=== PATIENT | female | born 1990 | race Two or more races ===

== ENCOUNTER 2025-06-17 10:26 | Outpatient (AMB) | payer OTHER, SELFPAY ==
--- OUTSIDE RECORDS SUMMARY | 2025-06-15 10:40 | XMS_ITS | Encounter Summary ---
Author Organization [facility] Address [address] [place] [address] Care Team Providers Care Cat Scanner Operator Name Role Phone Sukhwinder Sanchez MD Primary Care Pr ovider Reason for Referral * Imaging (Routine) - Pending Review Specialty Diagnoses / Procedures Referred By Contac t Referred To Contact Radiology Diagnoses Epigastric pain Procedures US Abdomen Complete Pedro Conti MD [address] [facility] [address] [place] [address] Phone: tel: fax: [facility] Referral ID Status Reason Start Date Expiration Date V isits Requested Visits Authorized [id number] Pending Review 06/15/2025 06/15/2026 1 1 Reason for Visit * Reason Comments Abdominal Pain Constipation * Consultation (Routine) - Authorized Specialty Diagnoses / Procedures Referred By Contac t Referred To Contact Gastroenterology Diagnoses Epigastric pain Franky Wheatley PA [address] [place] [address] Phone: tel: fax: Gastroenterology - [place] [address] [facility] [address] [facility] [address] [place] [address] Phone: tel: fax: Referral ID Status Reason Start Date Expiration Date Visits Requested Visits Authorized [id number] Authorized Specialty Services Required 12/09/2024 12/09/2025 1 1 Encounter Details Date Type Department Care Team (Late st Contact Info) Description 06/15/2025 10:40 AM EST Office Visit Gastroenterology - [address] [place] [address] [facility] [address] [place] [address] Pedro Conti MD [address] [facility] [address] [place] [address] Menorrhagia with regular cycle (Primary Dx); Iron deficiency anemia due to chronic blood loss; Epigastric pain; Family history of gallstones; Constipation, unspecified constipation type Social History Tobacco Use Types Packs/Day Years Used Date Smoking Tobacco: Never Smokeless Tobacco: Never Alcohol Use Standard Drinks/Week Comments Yes 0 (1 standard drink = 0.6 oz pur e alcohol) Socially Interpersonal Safety Answer Date Record ed Physical Abuse Unrecognized value 03/23/2025 Verbal Abuse Unrecognized value 03/23/2025 Comments No Sex and Gender Information Value Date Recorded Sex Assigned at Female 03/15/2025 3:14 PM EDT Legal Sex Female 1:00 AM EST Gender Identity Not on file Sexual Orientation Not on file documented as of this encounter Last Filed Vital Signs Vital Sign Reading Time Taken Comments Blood Pressure 106/72 06/15/2025 10:53 AM EST Pulse 76 06/15/2025 10:53 AM EST Temperature - - Respiratory Rate - - Oxygen Saturation - - Inhaled Oxygen Concentration - - Weight 81.2 kg (179 lb) 06/15/2025 10:53 AM EST Height 165.1 cm (5' 5 ) 06/15/2025 10:53 AM EST Body Mass Index 29.79 06/15/2025 10:53 AM EST documented in this encounter Progress Notes * Pedro Conti MD - 06/15/2025 10:40 AM EST Increase fiber; add Miralax; move up abd u/s * Pedro Conti MD - 06/15/2025 10:40 AM EST 34 y/o female with one year of intermittent epigastric pain and constipation. Has had severe FDA due to menorrhagia with large fibroid which was resected recently. Now on iron and Hb up to 9gm% (was 7.2 gm%). Pain occurs about 3 times a month can last all day; not associated with known triggers or diet; no heartburn nausea vomiting weight loss or dysphagia; has stools every 3 days scyballous; claims good water intake but low fiber and trying to lose weight. FH positive for gallstones.Pain not related to fatty foods and does not radiate to back; has been scheduled for u/s but not for several months. Rare EtOH; non-smoker; has taken ibuprofen in past but not recently PMH: revieweed ROS: no SSCP MULLER Edema PE: WN/WD female NAD HEENT neg Cor and Lungs; clear Abd: soft mild epigastric tenderness no mass Extr: neg Imp & Plan: Functional constipation. Need to increase fiber intake and eat breakfast; can try Miralax or other fiber supplement. Oral iron may be aggravating constipation; Will try to move up abd u/s. If positive for gallstones will refer to general surgery; if negative can consider egd to r/o PUD etc but not related to diet documented in this encounter Plan of Treatment Upcoming Encounters Date Type Department Care Team ([facility] st Contact Info) Description 07/27/2025 11:00 AM EST Office Visit Gastroenterology - [address] [phone] Pedro Conti MD [address] [place] [id number] Scheduled Orders Name Type Priority Associated Diagnoses Orde r Schedule US Abdomen Complete Imaging Routine Epigastric pain Expected: 06/15/2025, Expires: 07/15/2025 documented as of this encounter Visit Diagnoses Diagnosis Menorrhagia with regular cycle- Primary Iron deficiency anemia due to chronic blood loss Iron deficiency anemia secondary to blood loss (chronic) Epigastric pain Abdominal pain, epigastric Family history of gallstones Family history of other digestive disorders Constipation, unspecified constipation type documented in this encounter Orders Outpatient Referral Count Last Ordered Date Fir st Ordered Date AMB REFERRAL TO GASTROENTEROLOGY 1 06/15/20 25 documented in this encounter Care Teams Cat Scanner Operator Relationship Specialty Start Date End Date Sukhwinder Sanchez MD [address] [place] [phone] PCP - General 02/03/23 documented as of this encounter
--- NOTE | 2025-06-17 10:15 | A.OFFVIS_ITS ---
Vital Signs 06/17/25 10:19 Height 5 ft 5 in Weight 180 lb BMI 30.0 BP 130/86 Blood Pressure Location Rt brachial Position Sitting Respiration 16 Pulse 78 Pulse Source Pulse Oximeter Pulse Oximetry (%) 100 Oxygen Delivery Method Room Air Intake Visit Reasons: Cerebrovascular accident Merchandising Specialist Required: No Allergies sean flavor Allergy (Unknown, Verified 06/17/25 10:20) Unknown morphine Allergy (Unknown, Verified 06/17/25 10:20) Unknown ondansetron (From Zofran) Allergy (Unknown, Verified 06/17/25 10:20) Unknown HPI Comments Details: Ruthy is a 34-year-old female patient medical history headaches, sleep difficulties, and CVA in 2019. According to records from primary care, she had a cerebellar stroke and possible RCVS in 2020 while . Her MRI at the time was positive for small cerebellar strokes. 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 Etiology was unclear and she was recommended a hypercoagulability workup. She saw [facility] neurology after her event though she can not recall the treatment recommendations at that time. I do not have access to these notes today. I also do not have any access to her hypercoagulable workup though she does recall it being negative. She tells me that she is currently experiencing a proximally 4 headache days per month. Her headaches are associated blurry vision and tend to be sudden onset. Headaches can last 10-30 minutes and are [id number] in pain intensity though both eyes become very blurry and this causes some anxiety. Her pain is typically bitemporal. She does not have light or sound sensitivity or nausea. She does not have any dizziness. Between her headaches she does not have any changes to her vision. There was no positional components to her headaches and they can arise at any point during the day. These types of headaches have been going intermittently since her CVA in August of 2019. She also notes some occasional tenderness to the crown of her head in the center but this is not directly associated with the headaches as she describes above. Other related background information: Sleep: Reports that sleep is poor. She has difficulty initiating and maintaining sleep. 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 Hydration: Drinks 2 16oz burnett per day Caffeine intake:Occasional /rare but not daily Alcohol intake:Rarely/social Substance use:None Tobacco use:None Last eye exam: >1 year ago Last dental visit:Within the last year Family planning considerations:No, has an IUD in place Past medication trials: Propranolol-no improvement Recalls being on a medication that made her headaches worse but can not remember the name Prior workup: August 2019 CTA of the head showed superior cerebellar artery cutoff June 2020 CT angio head and neck: No evidence of vascular occlusion, critical stenosis, dissection or aneurysm. [facility] Medical History (Updated 06/17/25 @ 11:07 by Tiffanie Pearson CNP) Vitamin D deficiency Sickle cell trait Migraine Anemia Cerebrovascular accident (CVA) Surgical History (Updated 05/26/25 @ 09:05 by Vickie Urena CMA) History of elective History of colposcopy Review of Systems Const All systems reviewed & are unremarkable except as noted in HPI and below Physical Exam Vital Signs: Last Vital Signs Pulse 78 06/17/25 10:19 Resp 16 06/17/25 10:19 BP 130/86 06/17/25 10:19 Pulse Ox 100 06/17/25 10:19 Oxygen Delivery Method Room Air 06/17/25 10:19 BMI result Body Mass Index 30.0 Const General: cooperative, healthy appearing, comfortable and no acute distress Nutritional Appearance: well nourished Orientation/consciousness: patient oriented x3 Limitations: no limitations HEENT Head: Yes normal to inspection and Yes normocephalic Eyes General: appearance normal, both eyes and all related structures Visual Cam: normal visual cam by confrontation Alignment and Position: alignment normal Periorbital: periorbital findings normal Eyelids: Yes eyelids normal Conjunctivae: conjunctivae normal Sclerae: sclerae normal Direct Ophthalmoscopy: normal light reflex Neck Neck: Yes normal visual inspection and Yes full ROM General: Yes no CVA tenderness Back/Spine/Pelvis Back: no CVA tenderness Cervical Spine: normal cervical lordosis Thoracic/Lumbar Spine: thoracic and lumbar spine normal to inspection Neuro General: patient oriented x3, tone normal and deep tendon reflexes 2+ bilaterally Cranial nerves: Yes CN's II-XII intact bilaterally and Yes Facial sensation int act/muscles of mastication intact Cognition (Neuro): normal cognition Gait exam (Neuro): Normal gait present Motor exam (neuro): 5/5 motor strength present throughout and no tremor noted Sensory Exam: double simultaneous stimulation for sensation normal Romberg Test: Negative Pupils: Normal pupillary reactivity/response: bilateral Psych Appearance: grossly normal Mental Status: mental status grossly normal Speech and movement: Normal speech and movement present and Clear speech present Affect: normal affect Attitude: cooperative Thought process: Normal thought process present Thought content: Normal thought content present Insight: Good insight present (Psych) Judgement: Good judgement present (Psych) Assessment & Plan Assessment & Plan (1) Temporal headache: Code(s): R51.9 - Headache, unspecified Category: Medical (2) Blurred vision: Code(s): H53.8 - Other visual disturbances Category: Medical Plan Ruthy is a 34-year-old female patient medical history headaches, sleep difficulties, and CVA in 2019. Based on available records today, it appears that stroke is cryptogenic not likely related to hypercoagulable state (though I do not have lab results for review). She was seen at [facility] neurology after her stroke event. I will attempt to get these records. She does continue to have headaches 4 times per month associated with a sudden onset and blurry vision. These have been happening since her CVA in 2027 without any change to the quality or patterns. Exam today was normal. Headache etiology seems somewhat unclear but suspicious for vascular involvement. I will start verapamil 120 mg nightly and we can consider further imaging if needed pending the notes from [facility] neurology. Sleep remains poor, could consider in the future doing a sleep study treating with melatonin. Verapamil however does have somewhat of a sleep inducing effect which may be beneficial in that regard as well. Headaches at present are too brief to consider acute therapy. -Verapamil 120mg nightly -Consider addition of melatonin if additional sleep agent is needed -Consider repeat imaging if indicated based on prior notes -Follow up in 2 months or sooner if needed Medications: New verapamil ER 120 mg PO BEDTIME 30 caps 5RF 30 days Coding Level of Care Code New Pt Level 4 (67297) Diagnoses Temporal headache R51.9 Blurred vision H53.8
[2025-06-17 10:19] VITALS: BP 130/86; PULSE 78; RESP 16; O2SAT 100
--- OUTSIDE RECORDS SUMMARY | 2025-06-17 11:08 | XMS_ITS ---
Author Name [facility] Organization Unknown Care Team Organization Name Specialty Phone Email Start Date End Da te [facility] Annette Melchor APRN Primary Care 12/02/2022 03/15/2024 [facility] Sharifa Aguirre Primary Care 06/04/2022
--- OUTSIDE RECORDS SUMMARY | 2025-06-17 11:08 | XMS_ITS | Patient Health Record ---
Author Organization [facility] Address [address] [place] [address] Care Team Providers Care Stack Yield Engineer Name Role Phone IVONNE RAJAN Unavailable [phone] Reason For Referral No Information Immunizations Vaccine Route Administration Date Status Comme nts TB SKIN TEST ID Intradermal 06/30/2023 Administered Plan Of Treatment No Information Insurance Providers Payer Name Payer Address Payer Phone Subscriber Number Group Number Insured Name Patient Relationship to Insured Coverage Start Date Coverage End Date [facility] [address] [place] [address] SHITAL AZAR Self - patient is the insured 2 SELF/NN [address] [place] [address] [phone] SHITAL AZAR Self - patient is the insured 3
--- OUTSIDE RECORDS SUMMARY | 2025-06-17 11:09 | XMS_ITS | Clinical Summary ---
Author Organization [place] [address] [address] Formerly [facility], [facility] Building Address [address] [place] [address] Phone Care Team Providers Care Surgery Nurse Name Role Phone Sukhwinder Sanchez MD Primary Care Pr ovider Allergies Active Allergy Reactions Criticality Noted Date Comments Camron Flavor Swelling Low 05/13/2017 Bumps inside of mouth Morphine Itching High 12/17/2016 Other Reaction(s): Rash/Dermatitis Hand area from IV morphine Ondansetron Hcl Itching Medium 12/26/2024 Medications ferrous sulfate 325 mg (65 mg iron) EC tabletIndicatio ns:Iron deficiency anemia due to chronic blood loss Take 1 tablet (325 mg total) by mouth 2 (two) times a day. Do not crush, chew, or split. 180 each 1 5 09/17/19 26 Active ibuprofen (ADVIL,MOTRIN) 600 mg tablet Take 1 tablet (600 mg total) by mouth every 8 (eight) hours if needed for mild pain, moderate pain or fever - temperature GREATER than 38 C (100.4 F) for up to 30 doses. 30 tablet 5 Active Active Problems Problem Noted Date Diagnosed Date Multiple thyroid nodules 03/22/2025 Subclinical hyperthyroidism 03/21/2025 Assessment & Plan (03/22/2025 12:00 AM EDT): Referred to endocrinology Orders: Ambulatory referral to Endocrinology; Future Menorrhagia with regular cycle 01/13/2025 Obstructive sleep apnea syndrome 12/30/2024 Assessment & Plan (03/22/2025 12:00 AM EDT): Not on CPAP. Referred to sleep medicine to get retested and possibly treated if indicated Orders: Ambulatory referral to Sleep Medicine; Future Symptomatic anemia 12/27/2024 Uterine leiomyoma 12/14/2024 Overview (12/14/2024): 04/2024 Uterus: The uterus was well visualized, anteverted in orientation, with a/an symmetric shape, and a/an enlarged size measuring 11.67 (L) x 8.41 (H) x 10.46 (W) cm. The myometrium appeared heterogenous. The endometrium was noted to be poorly defined. Fibroid: Posterior Intramural 5.51 x 4.50 x 6.12 displacing the endometrial cavity anteriorly Iron deficiency anemia 12/14/2024 Assessment & Plan (03/22/2025 12:00 AM EDT): Start ferrous sulfate daily and colace Orders: CBC and differential; Future Ferritin; Future Iron and TIBC; Future Vitamin B12; Future Folate; Future ferrous sulfate 325 mg (65 mg iron) EC tablet; Take 1 tablet (325 mg total) by mouth 2 (two) times a day. Do not crush, chew, or split. docusate sodium (Colace) 100 mg capsule; Take 1 capsule (100 mg total) by mouth 2 (two) times a day. Displacement of intrauterine contraceptive devic e 07/11/2022 Overview (07/26/2024): Last Assessment & Plan: I counseled Ruthy that her IUD is transverse and should not be relied upon for contraception. Her bleeding could have become more irregular due to the position of the IUD. She was counseled re: options for Paragard and Mirena when she has it removed. Discussed usual menstrual pattern with each. Explained she is at increased risk of recurrent displacement if she has it placed due to her current history, but chances are still reasonably low. She plans to follow up for Mirena IUD placement. Agrees to use condoms in the meantime. CVA (cerebral vascular accident) ([facility] V24, C SD/HCC V28) 10/04/2019 Overview (07/26/2024): Per [facility] hospital discharge note: (09/21-09/28/19) 09/21/19 presented with sudden onset aphasia, right weakness/upper,lower Cerebellar stroke, right sided/RCVS - reversible coronary vasospasm MRI pos for small cerebellar strokes, right side CTA showing superior cerebellar artery cutoff Unclear etiology at this time - hypercoag vs rcvs No aspirin per neurology(not atherosclerotic) Per heme note: we think she should be tested for hypercoagulopathy workup, given she got a multifocal stroke for unexplained reason. We will order PNH test, FII, FV mutation studies, [id number] study. She will be seen in hematology clinic after delivery (in 3-4 months). 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 This could be related to her anemia. No focal neurologic deficits. The CT head was negative. Results are as above. She is referred to neurology Orders: CT Head wo Contrast; Future Ambulatory referral to Neurology; Future Obesity (BMI 30-39.9) 04/23/2019 Overview (07/26/2024): * HgbA1c at intake: 04/22/19 - 5.1 * Early GTT: 04/22/19 - 136 3hr GTT: 04/26/19 passed * repeat 24-28 weeks if normal* Latent tuberculosis 01/20/2019 Overview (12/30/2024): 2 NOS for TB clinic- case closed Sickle cell trait ([facility] V24) 10/30/2016 Vitamin D deficiency 10/30/2016 Assessment & Plan (03/22/2025 12:00 AM EDT): Will update labs Orders: Vitamin D 25 hydroxy; Future Migraine 09/27/2016 Resolved Problems Problem Noted Date Diagnosed Date Resolved Date Uterine fibroid 03/23/2025 03/25/2025 Fibroids 01/13/2025 03/21/2025 Acute on chronic blood loss anemia 01/13/2025 03/21/2025 Encounters Date Type Department Care Team Description 06/15/2025 10:40 AM EST Office Visit Gastroenterology - [address] [phone] Pedro Conti MD Menorrhagia with regular cycle (Primary Dx); Iron deficiency anemia due to chronic blood loss; Epigastric pain; Family history of gallstones; Constipation, unspecified constipation type 05/16/2025 9:45 AM EDT Office Visit Obstetrics and Gynecology - [address] [phone] Pamella Coles DO S/P myomectomy (Primary Dx); test negative; Encounter for IUD insertion 04/08/2025 3:20 PM EDT Office Visit Obstetrics and Gynecology - [address] [phone] Candida Hernandez PA Postop check (Primary Dx); S/P myomectomy 03/23/2025 7:30 AM EDT - 03/23/2025 11:00 AM EDT Surgery [facility] Main OR [address] [place] [phone] Pamella Coles DO MYOMECTOMY [38060 (CPT )] 03/23/2025 7:30 AM EDT Anesthesia Event [address] [phone] Corie Cedeno MD 03/23/2025 5:43 AM EDT - 03/26/2025 1:37 PM EDT Hospital Encounter [facility] Surgical Unit [address] [place] [address] Pamella Coles DO Fibroids; Acute on chronic blood loss anemia; Menorrhagia with regular cycle Discharge Disposition: Home or Self Care 03/21/2025 10:00 AM EDT Consult Adult Medicine [facility] [address] [place] [address] Sukhwnider Sanchez MD Preop cardiovascular exam (Primary Dx); Iron deficiency anemia due to chronic blood loss; Cerebrovascular accident (CVA) due to other mechanism (CMS/HCC V24, [facility] V28); Obstructive sleep apnea syndrome; Vitamin D deficiency; Subclinical hyperthyroidism; Screening for metabolic disorder 03/21/2025 9:15 AM EDT - 03/21/2025 11:59 PM EDT Hospital Encounter CT Scan - [address] [phone] Cerebrovascular accident (CVA) due to other mechanism ([facility] V24, [facility] V28) Discharge Disposition: Home or Self Care 03/17/2025 4:00 PM EDT Consult [facility] [address] [facility] [place] [phone] Pamella Coles DO Subserous leiomyoma of uterus (Primary Dx); Acute on chronic blood loss anemia; Menorrhagia with regular cycle from Last 3 Months Immunizations Immunization Administration Dates Next Due DTP 12/26/1989, 9,01/24/1989,1988 Influenza Quadravalent, MDCK , 0.5ml, preservative free (Flucelvax) 6mo and older 07/02/2019 Influenza Quadrivalent, 0.5m l, preservative free (Fluarix; FluLaval; Fluzone) ages 6mo and older (Afluria) 3yo and older 04/23/2023 OPV 12/26/1989,01/24/1989,1988 PPD Test 02/02/2018 Rubella 05/19/2017,12/26/1989 Tdap Tetanus diptheria acell ular pertussis (Boostrix; Adacel) 7yo and older 08/23/2019,09/01/2017,12/26/2014 Varicella live (Varivax) 12m o and older 01/30/2017 Surgical History Surgery Date Site/Laterality Comments OTHER SURGICAL HISTORY 10/2015, 03/2015 PROCEDURE: HISTORICAL D&C; COMMENT: elective first trimester x 2 COLPOSCOPY 01/2014, 10/2012 PROCEDURE: LA COLPOSCOPY ENTIRE VAGINA W/VAGINA/CERVIX BX; COMMENT: HEATHER 1, MULTIPLE TOOTH EXTRACTIONS Left PROCEDURE: EACH ADD TOOTH EXTRACTION; COMMENT: upper left tooth extracted Medical History Medical History Date Comments Migraine 09/27/2016 DX:Migraine; COM MENT: gets facial numbness w/migraine History of abnormal cervical Pap smear DX:History of abnormal cervi johnathan Pap smear; COMMENT: HEATHER 1 on 01/2014 colpo, pap 09/2016 ASCUS +HPV (did not f/u for colpo) Sickle cell trait (CMS/HCC V24) DX:Sickle cell trait (HCC); COMMENT: hemoglobin C trait (Hgb AC) - done at [facility] 08/05/2007 Vitamin D deficiency 10/30/2016 DX:Vitamin D deficiency; COMMENT: noted in transfer records 03/2014 Elevated liver enzymes 03/2014 DX:Elevat ed liver enzymes; COMMENT: had elevated AST/ALT (per transfer notes - ?if there has been further f/u). Reversible cerebrovascular vasoconstriction syndrome 09/21/2019 DX:Reversible cerebrovascula r vasoconstriction syndrome Anemia hx History of transfusion Family History Medical History Relation Name Comments Breast cancer Aunt 45 Asthma Brother No Known Problems Father Healthy No Known Problems Maternal Grandfather Un known health hx Breast cancer Maternal Grandmother age un known Diabetes Maternal Grandmother Anemia Mother frequent transf usions Breast cancer Mother's side 1 maternal aunt Dx? mid-40 's Colon cancer Mother's side 1 maternal aunt Breast cancer Mother's side 2 maternal aunt Dx ?mid-40 's Other: CA Throat Paternal Grandfather Thyroid disease Paternal Grandfather Other: Scoliosis Paternal Grandmother Other: lupus Sister 1 half sister (sha re mom) Stroke Sister 1 half sister (sha re mom) clot from lupus 02/2015 No Known Problems Sister 2 half sister (s hare mom) Healthy Other: Sickle cell trait Son 1 Other: HGB C Son 2 Ovarian cancer Neg Hx Pancreatic cancer Neg Hx Prostate cancer Neg Hx Uterine cancer Neg Hx Relation Name Status Comments Aunt Brother Alive Father Alive Maternal Grandfather Maternal Grandmother Mother Alive Mother's side 1 maternal aunt Mother's side 2 maternal aunt Alive Paternal Grandfather Paternal Grandmother Alive Sister 1 half sister (share mom) Alive Sister 2 half sister (share mom) Alive Son 1 Alive Son 2 Alive Social History Tobacco Use Types Packs/Day Years Used Date Smoking Tobacco: Never Smokeless Tobacco: Never Tobacco Cessation:Counseling Given: Not Answered Alcohol Use Standard Drinks/Week Comments Yes 0 [...] on file Sexual Orientation Not on file Obstetrics History * This document contains information received from the source organization and may not represent a complete record from that organization. Para Term AB IAB SAB Ectopic Multiple Livin g Live Births 5 2 2 2 2 Date Outcome GA Total Labor Labor/2nd/3rd Weight Sex Type Anes PTL Audra A1 A5 Name Clin 2007 Term 40w 3d 13h 30m 3456 g (121.9 oz) M Vag-S pont Epidur al N Livin g Trevey awn Morale s Complications:None Delivery Location:[facility] Comments:GBS+ 2014 2015 2016 2017 Term 40w 2d 2h 59m 2h 50m/0h 04m/0h 05m 3317 g (117 oz) M Vag-S pont Epidur al N Livin g 8 8 Billy Victor CN Delivery Location:[facility] Comments:compound deli very of left arm, GBS+ Last Filed Vital Signs Vital Sign Reading Time Taken Comments Blood Pressure 106/72 06/15/2025 10:53 AM EST Pulse 76 06/15/2025 10:53 AM EST Temperature 36.1 C (96.9 F) 03/26/2025 8:03 AM EDT Respiratory Rate 15 03/26/2025 8:03 AM EDT Oxygen Saturation 100% 03/26/2025 8:03 AM EDT Inhaled Oxygen Concentration - - Weight 81.2 kg (179 lb) 06/15/2025 10:53 AM EST Height 165.1 cm (5' 5 ) 06/15/2025 10:53 AM EST Body Mass Index 29.79 06/15/2025 10:53 AM EST Plan of Treatment Upcoming Encounters Date Type Department Care Team (Late st Contact Info) Description 07/27/2025 11:00 AM EST Office Visit Gastroenterology - [address] [facility] [address] [place] [phone] Pedro Conti MD [address] [address] Health Maintenance Due Date Last Done Comments Hepatitis B Vaccines (1 of 3 - 19+ 3-dose series) 2007 Pneumococcal Vaccine: Pediatrics (0 to 5 Years) and At-Risk Patients (6 to 49 Years) (1 of 2 - PCV) 2007 HPV Vaccines (1 - 3-dose SCDM series) 2015 Cervical Cancer Screening: Pap Smear 05/10/2020 05/10/2019, 05/10/2019, 05/10/2019 Social Influencers of Health Screening 06/30/2022 Depression Screening 07/28/2024 COVID-19 Vaccine ( season) 2025 09/10/2021, 08/13/2021 Influenza Vaccine (#1) 2025 04/23/2023, 2018 DTaP,Tdap,and Td Vaccines (8 - Td or Tdap) 08/23/2029 08/23/2019, 09/01/2017, 12/26/2014, Additional history exists Cholesterol Screening (Lipid Panel) 03/21/2030 03/21/2025, 01/30/2017 RSV Immunization Adult Patients (1 - 1-dose 75+ series) 2063 IPV Vaccines Discontinued 12/26/1989, 12/28, 1988 Hepatitis C Screening Completed 09/27/2016 Varicella Vaccines Aged Out 01/30/2017 No longer eligible based on patient's age to complete this topic HIV Screening Completed 04/22/2019 HIB Vaccines Aged Out No longer eligi ble based on patient's age to complete this topic Hepatitis A Vaccines Aged Out No long er eligible based on patient's age to complete this topic MMR Vaccines Aged Out No longer eligi ble based on patient's age to complete this topic Meningococcal ACWY Vaccine Aged Out N o longer eligible based on patient's age to complete this topic Meningococcal B Vaccine Aged Out No l onger eligible based on patient's age to complete this topic RSV Immunization Patients Under 20 months Aged Out No longer eligible based on patient's age to complete this topic Procedures Procedure Name Priority Date/Time Associated Diagnosis Comments LA INSERTION INTRAUTERINE DEVICE Routine 05/16/2025 11:57 AM EDT Encounter for IUD insertion POC , URINE DIAGNOSTIC Routine 05/16/2025 9:58 AM EDT test negative SST - GOLD Routine 03/26/2025 5:35 AM EDT EXTRA TUBES Routine 03/26/2025 5:35 AM EDT COMPLETE BLOOD COUNT Routine 03/26/2025 5:35 AM EDT PREPARE RBC Routine 03/25/2025 12:32 PM EDT CBC WITH AUTO DIFFERENTIAL Routine 03/25/2025 8:06 AM EDT CBC AND DIFFERENTIAL Routine 03/25/2025 8:06 AM EDT SST - GOLD Routine 03/25/2025 8:04 AM EDT EXTRA TUBES Routine 03/25/2025 8:04 AM EDT TRANSFUSE RED BLOOD CELLS Routine 03/24/2025 3:20 PM EDT PREPARE RBC Routine 03/24/2025 12:19 PM EDT HEMOGLOBIN AND HEMATOCRIT STAT 03/24/2025 11:01 AM EDT HEMOGLOBIN AND HEMATOCRIT Routine 03/24/2025 6:25 AM EDT SST - GOLD Routine 03/24/2025 6:21 AM EDT EXTRA TUBES Routine 03/24/2025 6:21 AM EDT LAVENDER - EDTA Routine 03/24/2025 6:21 AM EDT EXTRA TUBES Routine 03/24/2025 6:21 AM EDT TISSUE EXAM Routine 03/23/2025 9:04 AM EDT Fibroids Acute on chronic blood loss anemia Menorrhagia with regular cycle TRANSFUSE RED BLOOD CELLS Routine 03/23/2025 8:12 AM EDT ANESTHESIA PERIPHERAL IV PLACEMENT Routine 03/23/2025 8:01 AM EDT TH AN ENDOTRACHEAL(NO CHARGE) Routine 03/23/2025 8:00 AM EDT LA MYOMECTOMY EXC FIBROID TMR UT 1-4 INTRMR W WT 250G >/REM MYOMAS ABD APPR 03/23/2025 7:30 AM EDT Fibroids Acute on chronic blood loss anemia Menorrhagia with regular cycle Case Notes INPT Special Needs LINDA Siegel to assistThis case is inpt and please move others cases on 03/23/2025 down please and thank you! PREPARE RBC Routine 03/23/2025 7:14 AM EDT POC , URINE DIAGNOSTIC Routine 03/23/2025 6:53 AM EDT CBC WITH AUTO DIFFERENTIAL Routine 03/23/2025 6:01 AM EDT TYPE AND SCREEN Routine 03/23/2025 6:01 AM EDT CBC AND DIFFERENTIAL Routine 03/23/2025 6:01 AM EDT ECG 12-LEAD Routine 03/21/2025 11:21 PM EDT Preop cardiovascular exam TRIIODOTHYRONINE FREE Routine 03/21/2025 12:39 PM EDT Screening for metabolic disorder FREE THYROXINE WITH REFLEX TO FREE TRIIODOTHYRONINE Routine 03/21/2025 12:39 PM EDT Screening for metabolic disorder CBC WITH AUTO DIFFERENTIAL Routine 03/21/2025 12:39 PM EDT Iron deficiency anemia due to chronic blood loss LIPID PANEL WITH REFLEX TO DIRECT LDL Routine 03/21/2025 12:39 PM EDT Screening for metabolic disorder COMPREHENSIVE METABOLIC PANEL Routine 03/21/2025 12:39 PM EDT Screening for metabolic disorder HEMOGLOBIN A1C Routine 03/21/2025 12:39 PM EDT Screening for metabolic disorder FERRITIN Routine 03/21/2025 12:39 PM EDT Iron deficiency anemia due to chronic blood loss IRON AND TIBC Routine 03/21/2025 12:39 PM EDT Iron deficiency anemia due to chronic blood loss THYROID STIMULATING HORMONE WITH REFLEX TO FREE T4 AND FREE T3 Routine 03/21/2025 12:39 PM EDT Screening for metabolic disorder VITAMIN D 25 HYDROXY Routine 03/21/2025 12:39 PM EDT Vitamin D deficiency VITAMIN B12 Routine 03/21/2025 12:39 PM EDT Iron deficiency anemia due to chronic blood loss FOLATE Routine 03/21/2025 12:39 PM EDT Iron deficiency anemia due to chronic blood loss CBC AND DIFFERENTIAL Routine 03/21/2025 12:39 PM EDT Iron deficiency anemia due to chronic blood loss CT HEAD WO CONTRAST STAT 03/21/2025 11:02 AM EDT Cerebrovascular accident (CVA) due to other mechanism (CMS/HCC V24, CMS/HCC V28) PAP SMEAR Routine 05/10/2019 HM HIV SCREENING Routine 04/22/2019 HEPATITIS C SCREENING Routine 09/27/2016 from Last 3 Months or Most Recently Relevant to Health Maintenance Results * LA INSERTION INTRAUTERINE DEVICE (05/16/2025 11:57 AM EDT) Pamella Bryant DO - 05/16/2025 11:57 AM EDT Pamelal Coles DO 05/16/2025 11:59 AM IUD Insertion Date/Time: 05/16/2025 11:57 AM Performed by: Pamella Coles DO Authorized by: Pamella Coles DO Informed Consent: Health status cleared: Yes Procedure/treatment, purpose, treatment alternatives, risks/potential complications and benefits explained: yes Risk/complications/benefits details: Bleeding, discomfort, inability to pass device, malposition, perforation, expulsion Patient questions answered: yes Patient agrees, verbalizes understanding, and wants to proceed: yes Consent given by: Patient Informed consent discussion completed by Physician/RADHA with patient: Written; patient signed and dated; copy to patient Pre Procedure: Negative urine test: Yes Gonorrhea/chlamydia test: Not indicated Uterine position: Midline Insertion Procedure: Speculum placed in vagina and cervix prepped with: Betadine Cervix stablized: With allis Cervical dilation: no Uterus sounded: yes Uterus sound depth (cm): 8 IUD type: Mirena IUD insertion successful: yes Medication Administration: 52 mg levonorgestreL 21 mcg/24hr (up to 8 yrs) 52 mg Hemostasis achieved with: Applied pressure Complications: no Strings trimmed: yes Post-procedure: Patient tolerated procedure well: yes Post procedure instructions given: yes Pamella Coles DO IN CLINIC/BEDSIDE ORDERABLES Final Result * POC , urine manually resulted (05/16/2025 9:58 AM EDT) Only the most recent of2 resultswithin the time period is included. HCG, Ur POC Negative Negative POC hCG Int QC Pass? Yes Yes Urine Urine specimen obtained by clean catch procedure / Unknown 05/16/2025 9:58 AM EDT Pamella Coles DO POINT OF CARE TEST ENTER/EDIT ORDERABLES Final Result * SST tube (03/26/2025 5:35 AM EDT) Only the most recent of3 resultswithin the time period is included. [facility] Extra Tube Hold for add-ons. 03/26/2025 8:01 AM EDT [facility] Comment:Auto resulted. Blood Venous blood specimen / Unknown Venipuncture / Unknown 03/26/2025 5:35 AM EDT 03/26/2025 6:27 AM EDT us Pamella Coles DO LAB BLOOD ORDERABLES Final Re sult [facility] [address] [place] [address], * (ABNORMAL) Complete blood count (03/26/2025 5:35 AM EDT) [facility] WBC 6.8 4.8 - 10.8 K/mcL LAB HEMETOLOGY METHOD 03/26/2025 6:59 AM EDT [facility] RBC 4.40 3.80 - 4.80 M/mcL LAB HEMETOLOGY METHOD 03/26/2025 6:59 AM [facility] Hemoglobin 9.0(L) 11.5 - 16.0 g/dL LAB HEMETOLOGY METHOD 03/26/2025 6:59 AM EDT [facility] Hematocrit 29.0(L) 35.0 - 47.0 % LAB HEMETOLOGY METHOD 03/26/2025 6:59 AM [facility] MCV 65.6(L) 79.0 - 98.0 FL LAB HEMETOLOGY METHOD 03/26/2025 6:59 AM [facility] MCH 20.4(L) 27.0 - 32.0 pcg LAB HEMETOLOGY METHOD 03/26/2025 6:59 AM [facility] MCHC 31.0(L) 32.0 - 37.0 g/dL LAB HEMETOLOGY METHOD 03/26/2025 6:59 AM EDT [facility] RDW 28.7(H) 11.0 - 15.0 % LAB HEMETOLOGY METHOD 03/26/2025 6:59 AM EDT [facility] Platelets 303 130 - 400 K/mcL LAB HEMETOLOGY METHOD 03/26/2025 6:59 AM EDT [facility] MPV 10.0 7.0 - 11.0 FL LAB HEMETOLOGY METHOD 03/26/2025 6:59 AM EDT [facility] NRBC 0.0 <1.0 % LAB HEMETOLOGY METHOD 03/26/2025 6:59 AM EDT [facility] NRBC Absolute 0.00 <0.10 K/mcL LAB HEMETOLOGY METHOD 03/26/2025 6:59 AM EDT [facility] Blood Venous blood specimen / Unknown Venipuncture / Unknown 03/26/2025 5:35 AM EDT 03/26/2025 6:25 AM EDT us Karel Burton MD LAB BLOOD ORDERABLES Final Re sult [facility] [address] [place] [address], * Transfuse RBC (03/25/2025 5:13 PM EDT) Only the most recent of3 resultswithin the time period is included. us Karel Burton MD BLOOD TRANSFUSION ORDERABLES Final Result * Prepare RBC: 1 Units (03/25/2025 12:32 PM EDT) Only the most recent of3 resultswithin the time period is included. Product Code [id number] 03/25/2025 2:32 PM EDT [facility] Unit Number [id number] 03/25/20 2:32 PM EDT [facility] Crossmatch Compatible 03/25/2025 12:47 PM EDT [facility] Dispense Status Transfused 03/25/2025 2:32 PM EDT [facility] Unit ABO Rh BNEG 03/25/2025 2:32 PM EDT [facility] Unit Expiration Date Time 03/25/2025 2:32 PM EDT [facility] Unit Blood Type 1700 03/25/2025 2:32 PM EDT [facility] Blood Venous blood specimen / Unknown 03/25/2025 12:32 PM EDT 03/23/2025 6:17 AM EDT Karel Burton MD BLOOD BANK PRODUCT ORDERABLES Final Result [facility] [address] [place] [address], [place] [phone] * (ABNORMAL) CBC auto differential (03/25/2025 8:06 AM EDT) Only the most recent of3 resultswithin the time period is included. WBC 8.1 4.8 - 10.8 K/mcL LAB HEMETOLOGY METHOD 03/25/2025 8:20 AM EDT [facility] RBC 4.30 3.80 - 4.80 M/[facility] LAB HEMETOLOGY METHOD 03/25/2025 8:20 AM EDT [facility] Hemoglobin 8.4(L) 11.5 - 16.0 g/dL LAB HEMETOLOGY METHOD 03/25/2025 8:20 AM EDT [facility] Hematocrit 26.6(L) 35.0 - 47.0 % LAB HEMETOLOGY METHOD 03/25/2025 8:20 AM [facility] MCV 61.7(L) 79.0 - 98.0 FL LAB HEMETOLOGY METHOD 03/25/2025 8:20 AM [facility] MCH 19.5(L) 27.0 - 32.0 pcg LAB HEMETOLOGY METHOD 03/25/2025 8:20 AM [facility] MCHC 31.6(L) 32.0 - 37.0 g/dL LAB HEMETOLOGY METHOD 03/25/2025 8:20 AM [facility] RDW 26.3(H) 11.0 - 15.0 % LAB HEMETOLOGY METHOD 03/25/2025 8:20 AM [facility] Platelets 315 130 - 400 K/mcL LAB HEMETOLOGY METHOD 03/25/2025 8:20 AM [facility] MPV 9.3 7.0 - 11.0 FL LAB HEMETOLOGY METHOD 03/25/2025 8:20 AM [facility] NRBC 0.0 <1.0 % LAB HEMETOLOGY METHOD 03/25/2025 8:20 AM [facility] NRBC Absolute 0.00 <0.10 K/mcL LAB HEMETOLOGY METHOD 03/25/2025 8:20 AM [facility] Neutrophils Relative 67.3 % LAB HEMETOLOGY METHOD 03/25/2025 8:20 AM [facility] Lymphocytes Relative 25.6 % LAB HEMETOLOGY METHOD 03/25/2025 8:20 AM [facility] Monocytes Relative 5.0 % LAB HEMETOLOGY METHOD 03/25/2025 8:20 AM [facility] Eosinophils Relative 1.5 % LAB HEMETOLOGY METHOD 03/25/2025 8:20 AM [facility] Basophils Relative 0.4 % LAB HEMETOLOGY METHOD 03/25/2025 8:20 AM EDT [facility] Immature Granulocytes Relative 0.2 % LAB HEMETOLOGY METHOD 03/25/2025 8:20 AM EDT [facility] [facility] Neutrophils Absolute 5.42 1.50 - 7.00 K/mcL LAB HEMETOLOGY METHOD 03/25/2025 8:20 AM EDT [facility] Lymphocytes Absolute 2.06 1.00 - 5.00 K/mcL LAB HEMETOLOGY METHOD 03/25/2025 8:20 AM EDT [facility] Monocytes Absolute 0.40 0.20 - 1.00 K/mcL LAB HEMETOLOGY METHOD 03/25/2025 8:20 AM EDT [facility] Eosinophils Absolute 0.12 0.00 - 0.50 K/mcL LAB HEMETOLOGY METHOD 03/25/2025 8:20 AM EDT [facility] Basophils Absolute 0.03 0.00 - 0.20 K/mcL LAB HEMETOLOGY METHOD 03/25/2025 8:20 AM EDT [facility] Immature Granulocytes Absolute 0.02 0.00 - 0.03 K/mcL LAB HEMETOLOGY METHOD 03/25/2025 8:20 AM EDT [facility] Blood Venous blood specimen / Unknown Venipuncture / Unknown 03/25/2025 8:06 AM EDT 03/25/2025 8:11 AM EDT us Deepti Borrego MD LAB BLOO D ORDERABLES Final Result [facility] [address] [place] [address], * (ABNORMAL) Hemoglobin and hematocrit (03/24/2025 11:01 AM EDT) Only the most recent of2 resultswithin the time period is included. Hemoglobin 7.5(L) 11.5 - 16.0 g/dL LAB HEMETOLOGY METHOD 03/24/2025 11:23 AM EDT [facility] Hematocrit 24.4(L) 35.0 - 47.0 % LAB HEMETOLOGY METHOD 03/24/2025 11:23 AM EDT [facility] Blood Venous blood specimen / Unknown Venipuncture / Unknown 03/24/2025 11:01 AM EDT 03/24/2025 11:18 AM EDT [facility] LAB BLOOD ORDERABLES Final Re sult Performing Organization Address City/[facility]/ZIP Co de Phone Number [facility] [address] [place] [address], [place] [phone] * Lavender tube (03/24/2025 6:21 AM EDT) Extra Tube Hold for add-ons. 03/24/2025 8:01 AM EDT [facility] Comment:Auto resulted. 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 Uterus, fibroid: Labeled Endo, uterine f . Received in formalin is a 204 g, 7.2 x 7.1 x 6.5 cm arndt-white, whorled, rubbery, well-circumscribe d nodule. The nodule is partially surfaced by pink-red possible serosa. The cut surfaces are devoid of hemorrhage, necrosis, or cystic degeneration. Stamp Redemption Clerk sections are submitted in two cassettes, two pieces each. DAI 03/24/2025 12:47 PM EDT [facility] Disclaimer Unless otherwise specified, all tissue is 10% NB formalin fixed and paraffin embedded. 03/24/2025 12:47 PM EDT [facility] Tissue Uterine structure / Unknown 03/23/2025 9:04 AM EDT 03/23/2025 10:24 AM EDT Pamella Coles DO LAB PATHOLOGY ORDERABLES Tsering l Result [facility] [address] [place] [address], * Peripheral IV (03/23/2025 8:01 AM EDT) Narrative Placido Fournier CRNA - 03/23/2025 8:01 AM EDT Placido Fournier CRNA 03/23/2025 8:01 AM Peripheral IV Inserted by: Placido Fournier CRNA Placement Needle size: 18 G Laterality: left Location: antecubital Site prep: alcohol Technique: anatomical landmarks Attempts: 1 Corie Cedeno MD ANESTHESIA ORDERABLES Fin al Result * TH AN ENDOTRACHEAL(NO CHARGE) (03/23/2025 8:00 AM EDT) Narrative Placido Fournier CRNA - 03/23/2025 8:00 AM EDT Placido Fournier CRNA 03/23/2025 8:00 AM General Information and Staff Patient location during procedure: OR Resident/MIXED SIGNAL DESIGN ENGINEER: Placido Fournier CRNA Performed: resident/MIXED SIGNAL DESIGN ENGINEER/CAA Performed by: Placido Fournier CRNA Authorized by: Corie Cedeno MD Intubation Airway not difficult Urgency: elective Final Airway Details Successful airway: ETT Cuffed: yes Successful intubation technique: direct laryngoscopy Facilitating devices/methods: intubating stylet Endotracheal tube insertion site: oral Blade: Sunshine Blade size: #3 ETT size (mm): 7.0 Cormack-Lehane Classification: grade I - full view of glottis Placement verified by: chest auscultation and capnometry Cuff volume (mL): 7 Measured from: lips ETT to lips (cm): 20 Number of attempts at approach: 1Final airway type: endotracheal airway Indications and Patient Condition Indications for airway management: anesthesia Spontaneous Ventilation: absent Sedation level: Yes Preoxygenated: yes Soft Tissue Damage: No Dentition Unchanged: Yes Patient position: sniffing MILS maintained throughout Mask difficulty assessment: 1 - vent by mask Corie Cedeno MD ANESTHESIA ORDERABLES Fin al Result * Type and screen (03/23/2025 6:01 AM EDT) ABO Group B 03/23/2025 7:42 AM EDT [facility] Rh Type Positive 03/23/2025 7:42 AM EDT [facility] Antibody Screen Negative 03/23/2025 7:42 AM EDT [facility] Blood Venous blood specimen / Unknown Venipuncture / Unknown 03/23/2025 6:01 AM EDT 03/23/2025 6:17 AM EDT Pamella Coles DO LAB BLOOD BANK TEST ORDERABLE S Final Result [facility] [address] [place] [address], * ECG 12 lead (03/21/2025 11:21 PM EDT) Sukhwinder Sanchez MD ECG ORDERABLES Final Result * (ABNORMAL) Thyroid stimulating hormone with reflex to free t4 and free t3 (03/21/2025 12:39 PM EDT) TSH 0.30(L) 0.40 - 4.00 mcIU/mL LAB CHEMISTRY METHOD 03/21/2025 6:05 PM EDT [facility] Blood Venous blood specimen / Unknown Venipuncture / Unknown 03/21/2025 12:39 PM EDT 03/21/2025 12:39 PM EDT Sukhwinder Sanchez MD LAB BLOOD ORDERA BLES Final Result Performing Organization Address [facility]/ZIP Co de Phone Number [facility] [address] [place] [address], [place] [phone] * Free thyroxine with reflex to free triiodothyronine (03/21/2025 12:39 PM EDT) [facility] Free T4 1.21 0.70 - 1.80 ng/dL LAB CHEMISTRY METHOD 03/21/2025 7:01 PM EDT [facility] Blood Venous blood specimen / Unknown Venipuncture / Unknown 03/21/2025 12:39 PM EDT 03/21/2025 12:39 PM EDT Sukhwinder Sanchez MD LAB BLOOD ORDERA BLES Final Result Performing Organization Address City/[facility]/ZIP Co de Phone Number [facility] [address] [place] [address], [place] [phone] * (ABNORMAL) Lipid panel with reflex to direct LDL (03/21/2025 12:39 PM EDT) [facility] Cholesterol 171 0 - 200 mg/dL LAB CHEMISTRY METHOD 03/21/2025 5:00 PM EDT [facility] Triglycerides 109 0 - 150 mg/dL LAB CHEMISTRY METHOD 03/21/2025 5:00 PM EDT [facility] HDL 46 >=40 mg/dL LAB CHEMISTRY METHOD 03/21/2025 5:00 PM EDT [facility] LDL Calculated 103(H) 0 - 100 mg/dL LAB CHEMISTRY METHOD 03/21/2025 5:00 PM EDT [facility] Comment:Estimated LDL Calcul ated using equation: Total cholesterol - HDL cholesterol - (Triglycerides/5) VLDL Cholesterol Johnathan 21.8 mg/dL LAB CHEMISTRY METHOD 03/21/2025 5:00 PM EDT [facility] Non HDL Chol. (LDL+VLDL) 125 <145 mg/dL LAB CHEMISTRY METHOD 03/21/2025 5:00 PM EDT [facility] Chol/HDL Ratio 3.7 0.0 - 4.4 LAB CHEMISTRY METHOD 03/21/2025 5:00 PM EDT [facility] Blood Venous blood specimen / Unknown Venipuncture / Unknown 03/21/2025 12:39 PM EDT 03/21/2025 12:39 PM EDT Sukhwinder Sanchez MD LAB BLOOD ORDERA BLES Final Result [facility] [address] [place] [address], * (ABNORMAL) Iron and TIBC (03/21/2025 12:39 PM EDT) Iron 15(L) 40 - 150 mcg/dL LAB CHEMISTRY METHOD 03/21/2025 4:37 PM EDT [facility] TIBC 571(H) 250 - 450 mcg/dL LAB CHEMISTRY METHOD 03/21/2025 4:37 PM EDT [facility] Iron Saturation 3(L) 15 - 50 % LAB CHEMISTRY METHOD 03/21/2025 4:37 PM EDT [facility] Blood Venous blood specimen / Unknown Venipuncture / Unknown 03/21/2025 12:39 PM EDT 03/21/2025 12:39 PM EDT Sukhwinder Sanchez MD LAB BLOOD ORDERA BLES Final Result [facility] [address] [place] [address], [place] [phone] * (ABNORMAL) Vitamin D 25 hydroxy (03/21/2025 12:39 PM EDT) Pathologist [facility] Vit D, 25-Hydroxy 20.0(L) 30.0 - 80.0 ng/mL LAB CHEMISTRY METHOD 03/21/2025 6:05 PM EDT [facility] Blood Venous blood specimen / Unknown Venipuncture / Unknown 03/21/2025 12:39 PM EDT 03/21/2025 12:39 PM EDT Sukhwinder Sanchez MD LAB BLOOD ORDERA BLES Final Result Performing Organization Address [facility]/ZIP Co de Phone Number [facility] [address] [place] [address], [place] [phone] * Triiodothyronine free (03/21/2025 12:39 PM EDT) [facility] T3, Free 318 230 - 420 pcg/dL LAB CHEMISTRY METHOD 03/21/2025 7:40 PM EDT [facility] Blood Venous blood specimen / Unknown Venipuncture / Unknown 03/21/2025 12:39 PM EDT 03/21/2025 12:39 PM EDT Sukhwinder Sanchez MD LAB BLOOD ORDERA BLES Final Result Performing Organization Address City/[facility]/ZIP Co de Phone Number [facility] [address] [place] [address], [place] [phone] * Hemoglobin A1c (03/21/2025 12:39 PM EDT) [facility] Hemoglobin A1C 5.6 <6.5 % LAB CHEMISTRY METHOD 03/22/2025 1:33 PM EDT [facility] Mean Bld Glu Estim. 114 mg/dL LAB CHEMISTRY METHOD 03/22/2025 1:33 PM EDT [facility] Blood Venous blood specimen / Unknown Venipuncture / Unknown 03/21/2025 12:39 PM EDT 03/21/2025 12:39 PM EDT Sukhwinder Sanchez MD LAB BLOOD ORDERA BLES Final Result Performing Organization Address [facility]/ZIP Co de Phone Number [facility] [address] [place] [address], [place] [phone] * (ABNORMAL) Folate (03/21/2025 12:39 PM EDT) [facility] Folate >20.0(H) 2.8 - 17.0 ng/ml LAB CHEMISTRY METHOD 03/21/2025 5:00 PM EDT [facility] Blood Venous blood specimen / Unknown Venipuncture / Unknown 03/21/2025 12:39 PM EDT 03/21/2025 12:39 PM EDT Sukhwinder Sanchez MD LAB BLOOD ORDERA BLES Final Result [facility] [address] [place] [address], [place] [phone] * (ABNORMAL) Ferritin (03/21/2025 12:39 PM EDT) [facility] Ferritin 2(L) 8 - 252 ng/mL LAB CHEMISTRY METHOD 03/21/2025 5:01 PM EDT [facility] Blood Venous blood specimen / Unknown Venipuncture / Unknown 03/21/2025 12:39 PM EDT 03/21/2025 12:39 PM EDT Sukhwinder Sanchez MD LAB BLOOD ORDERA BLES Final Result Performing Organization Address [facility]/ZIP Co de Phone Number [facility] [address] [place] [address], [place] [phone] * Vitamin B12 (03/21/2025 12:39 PM EDT) [facility] Vitamin B-12 336 250 - 900 pcg/mL LAB CHEMISTRY METHOD 03/21/2025 5:00 PM EDT [facility] Blood Venous blood specimen / Unknown Venipuncture / Unknown 03/21/2025 12:39 PM EDT 03/21/2025 12:39 PM EDT Sukhwinder Sanchez MD LAB BLOOD ORDERA BLES Final Result Performing Organization Address [facility]/ZIP Co de Phone Number [facility] [address] [place] [address], [place] [phone] * (ABNORMAL) Comprehensive metabolic panel (03/21/2025 12:39 PM EDT) [facility] Sodium 137 133 - 145 mmol/L LAB CHEMISTRY METHOD 03/21/2025 4:37 PM EDT [facility] Potassium 4.0 3.5 - 5.5 mmol/L LAB CHEMISTRY METHOD 03/21/2025 4:37 PM EDT [facility] Chloride 107 96 - 110 mmol/L LAB CHEMISTRY METHOD 03/21/2025 4:37 PM EDT [facility] CO2 23 21 - 32 mmol/L LAB CHEMISTRY METHOD 03/21/2025 4:37 PM EDT [facility] Anion Gap 7 3 - 11 LAB CHEMISTRY METHOD 03/21/2025 4:37 PM [facility] Glucose 65(L) 70 - 100 mg/dL LAB CHEMISTRY METHOD 03/21/2025 4:37 PM [facility] BUN 11 5 - 25 mg/dL LAB CHEMISTRY METHOD 03/21/2025 4:37 PM [facility] Creatinine 0.84 0.50 - 1.10 mg/dL LAB CHEMISTRY METHOD 03/21/2025 4:37 PM [facility] eGFR 92 >=60 mL/min/1. 73m2 LAB CHEMISTRY METHOD 03/21/2025 4:37 PM [facility] Comment:Calculation based on the Chronic Kidney Disease Epidemiology Collaboration (CKD-EPI) equation refit without adjustment for race. BUN/Creatinine Ratio 13.1 LAB CHEMISTRY METHOD 03/21/2025 4:37 PM [facility] Calcium 9.3 8.5 - 10.5 mg/dL LAB CHEMISTRY METHOD 03/21/2025 4:37 PM [facility] AST (SGOT) 11 10 - 42 unit/L LAB CHEMISTRY METHOD 03/21/2025 4:37 PM [facility] ALT (SGPT) 17 10 - 60 unit/L LAB CHEMISTRY METHOD 03/21/2025 4:37 PM [facility] Alkaline Phosphatase 78 42 - 121 unit/L LAB CHEMISTRY METHOD 03/21/2025 4:37 PM [facility] Total Protein 8.4(H) 6.0 - 8.0 g/dL LAB CHEMISTRY METHOD 03/21/2025 4:37 PM [facility] Albumin 4.4 3.2 - 5.0 g/dL LAB CHEMISTRY METHOD 03/21/2025 4:37 PM [facility] Total Bilirubin 0.3 0.0 - 1.4 mg/dL LAB CHEMISTRY METHOD 03/21/2025 4:37 PM [facility] Blood Venous blood specimen / Unknown Venipuncture / Unknown 03/21/2025 12:39 PM EDT 03/21/2025 12:39 PM EDT Sukhwinder Sanchez MD LAB BLOOD ORDERA BLES Final Result [facility] [address] [place] [address], * CT Head wo Contrast (03/21/2025 11:02 AM EDT) Anatomical Region Laterality Modality Head and Neck Computed Tomogra phy 03/21/2025 11:3 3 AM EDT Impressions 03/21/2025 11:37 AM EDT Impression: No acute intracranial process. -------- FINAL REPORT -------- Dictated By: Ochoa Mcwilliams Dictated Date: 03/21/2025 11:33 ET Assigned Physician: Ochoa Mcwilliams Reviewed and Electronically Signed By: Ochoa Mcwilliams Signed Date: 03/21/2025 11:37 ET Workstation ID: [id number] Transcribed By: Self Edit Transcribed Date: 03/21/2025 11:33 ET Narrative 03/21/2025 11:[address] head Clinical history: hx of CVA, headaches, blurry vision; preop Technique: Multiple contiguous axial images were obtained from the skull base to the cranial vertex, without the use of intravenous contrast. Images were reformatted into coronal and sagittal planes Comparison:CT head from 09/21/2018 CT head Findings: The ventricles and sulci are within normal limits. No intracranial hemorrhage or extra-axial fluid collection is identified. There is no evidence of acute territorial infarct, focal mass effect or midline shift. Hernandez-white matter differentiation is well preserved. Incidentally noted cavum vergae. The osseous structures are intact. The visualized paranasal sinuses and mastoid air cells are well aerated. Procedure Note Ochoa Mcwilliams MD - 03/21/2025 CT head Clinical history: hx of CVA, headaches, blurry vision; preop Technique: Multiple contiguous axial images were obtained from the skullbase to the cranial vertex, without the use of intravenous contrast.Images were reformatted into coronal and sagittal planes Comparison:CT head from 09/21/2018 CT head Findings: The ventricles and sulci are within normal limits. No intracranialhemorrhage or extra-axial fluid collection is identified. There is noevidence of acute territorial infarct, focal mass effect or midline shift.Hernandez-white matter differentiation is well preserved. Incidentally notedcavum vergae. The osseous structures are intact. The visualized paranasal sinuses andmastoid air cells are well aerated. IMPRESSION: Impression: No acute intracranial process. -------- FINAL REPORT -------- Dictated By: Ochoa Mcwilliams Dictated Date: 03/21/2025 11:33 ET Assigned Physician: Ochoa Mcwilliams Reviewed and Electronically Signed By: Ochoa Mcwilliams Signed Date: 03/21/2025 11:37 ET Workstation ID: [id number] Transcribed By: Self Edit Transcribed Date: 03/21/2025 11:33 ET Sukhwinder Sanchez MD IMG CT PROCEDURE S Final Result * Pap smear (05/10/2019) 05/10/2019 Narrative HISTORICAL TESTING LAB RESULTING AGENCY - 05/14/2019 4:56 PM EDT [id number] THINPREP PAP, IMAGED: NEGATIVE FOR SQUAMOUS INTRAEPITHELIAL LESION AND MALIGNANCY . CLUE CELLS ARE PRESENT. PAMELLA DAMON , CT(ASCP) (CASE ELECTRONICALLY SIGNED 05 14 2019) RESULT OF APTIMA HIGH RISK HPV ASSAY: HIGH RISK HPV: NEGATIVE (SEROTYPES 16,18,31,33,35,39,45,51,52,56,58,59,66,68) COMPLETED ON 2019-05-12 ADEQUACY: SATISFACTORY ENDOCERVICAL/TRANSFORMATION ZONE COMPONENT ABSENT. SOURCE: THINPREP PAP HPV ANY DX: REFLEX 16 AND 18, CERVICAL, IMAGED CLINICAL INFORMATION: HPV ANY DIAGNOSIS. , PAP HX POS ASCUS + HPV, Z12.4 Arlene Felder CN LAB CYTOLOGY ORDERA BLES Final Result HISTORICAL TESTING LAB RESULTING AGENCY * HIV Screening (04/22/2019) HIV Screening abstracted Historical Provider HEALTH MAINTENANCE Final Result * Hepatitis C Screening (09/27/2016) Hepatitis C Screening abstracted Historical Provider HEALTH MAINTENANCE Final Result from Last 3 Months or Most Recently Relevant to Health Maintenance Insurance [facility] [address] PL[address] Advance Directives * Full Code - Default (Latest Code Status on File) Date Activated Date Inactivated Comments 03/23/2025 5:55 AM 03/26/2025 4:05 PM This is orde r is used when code status has not been discussed with the patient, or code status is otherwise unknown/unconfirmed To update the patient's code status, place a code status order. Do not modify or discontinue any currently active code status orders. * Full Code - Confirmed Date Activated Date Inactivated Comments 12/27/2024 5:27 PM 12/28/2024 6:54 PM This code stat us was ascertained in the following way: Code status discussion: discussion with patient To update the patient's code status, place a code status order. Do not modify or discontinue any currently active code status orders. * Full Code - Default Date Activated Date Inactivated Comments 12/27/2024 2:57 PM 12/27/2024 5:27 PM This is order is used when code status has not been discussed with the patient, or code status is otherwise unknown/unconfirmed To update the patient's code status, place a code status order. Do not modify or discontinue any currently active code status orders. Care Teams Surgery Nurse Relationship Specialty Start Date End Date Sukhwinder Sanchez MD [address] [place] [phone] PCP - General 02/03/23
== END 2025-06-17 10:45 | disposition home or self-care (01) ==
PROVIDERS: PCP Family Medicine; Visit Provider Nurse Practitioner
DX: R51.9 Headache, unspecified (principal); H53.8 Other visual disturbances
CPT/HCPCS: 99204

== ENCOUNTER → 2025-06-17 10:26 | Outpatient (BNVA) | payer OTHER, SELFPAY | PROVIDERS: PCP Family Medicine; Visit Provider Nurse Practitioner | DX: R51.9 Headache, unspecified (principal); H53.8 Other visual disturbances | CPT/HCPCS: 99202 ==